=== PATIENT | male | born 1990 | race Caucasian/White ===

== ENCOUNTER 2018-08-19 20:30 | Inpatient (IN) | payer SELFPAY ==
[2018-08-19] MEDS: ALBUTEROL/IPRATROPIUM 3 ML AMPUL INH ×2 (20:38→20:49)
--- NOTE | 2018-08-19 20:38 | ED.ASTHMA ---
HPI - Asthma General Chief Complaint: Upper Respiratory Symptoms Stated Complaint: cant breath Time Seen by Provider: 08/19/18 20:38 Source: patient and family Mode of arrival: ambulatory Limitations: no limitations History of Present Illness HPI Narrative: 28 year old male, non smoker with history of asthma presents with family and chief complaint of worsening wheeze, fever, cough, headache, and body ache since last night. His normal bronchodilators are not providing much relief. He states he has never been so sick. He denies sick contacts. He denies recent travel. MD complaint: asthma attack, shortness of breath and wheezing Onset (ago): hour(s) Severity: severe Associated symptoms: dry cough and fever Asthma History: childhood onset Treatments Prior to Arrival: inhaled bronchodilator Related Data Current Asthma Therapy: inhaled bronchodilator Baseline Peak Flow (L/min): 250 Allergies Allergy/AdvReac Type Severity Reaction Status Date / Time No Known Drug Allergies Allergy Verified 08/20/18 01:23 Review of Systems Review of Systems All systems reviewed & are unremarkable except as noted in HPI and below Constitutional Reports chills, Reports fever(s), Reports headache(s), Denies lethargy and Denies weakness Eyes Denies change in vision, Denies eye discharge, Denies irritation and Denies loss of vision ENT Ears, Nose, Mouth, and Throat: Denies change in voice, Reports headache(s), Denies neck pain and Denies sore throat Cardiovascular Denies chest pain, Denies irregular heart rhythm, Denies lightheadedness, Denies palpitations, Reports dyspnea, Denies dyspnea on exertion and Denies orthopnea Respiratory Reports cough, Reports dyspnea, Denies dyspnea on exertion and Reports wheezing Gastrointestinal Gastrointestinal: Denies abdominal pain, Denies change in bowel habits, Denies diarrhea, Denies nausea and Denies vomiting Genitourinary Denies hematuria, Denies flank pain, Denies urinary incontinence and Denies urinary urgency Musculoskeletal Reports myalgias and Denies neck pain Integumentary/Breasts Denies pruritus, Denies erythema, Denies rash and Denies wounds Neurologic Denies confusion, Reports headache(s), Denies loss of vision and Denies weakness Psychiatric Denies anxiety, Denies confusion, Denies depression, Denies homicidal ideation and Denies suicidal ideation Endocrine Denies palpitations Hematologic/Lymphatic Denies easy bruising Allergic/Immunologic Reports wheezing Exam Narrative Exam Narrative: 28M obviously ill, noted respiratory distress with use of accessory muscles Initial Vital Signs Initial Vital Signs: Vital Signs Pulse Rate 135 H 08/19/18 20:44 Respiratory Rate 28 H 08/19/18 20:44 Blood Pressure 132/78 08/19/18 20:44 Pulse Oximetry 90 L 08/19/18 20:44 Const General: cooperative, well developed, acute distress and ill appearing Nutritional Appearance: well nourished Orientation: alert, awake, oriented x3 and not confused [facility] Head: normal to inspection Ears: hearing grossly normal bilaterally and external ears normal Nose: external nose normal and nares normal Face and sinus: normal facial exam Mouth: oral mucosae normal Teeth and gingiva: dentition normal Throat: posterior oropharynx normal Neck Neck: normal visual inspection Chest Chest: normal inspection of the chest Resp Effort & Inspection: audible wheezes, cough, labored, respiratory distress, tachypneic and uses accessory muscles Auscultation: no rales, no rhonchi and wheezes Cardio Rate: tachycardic Rhythm: regular rhythm GI Inspection: normal to inspection Palpation: soft Auscultation: normal bowel sounds Back/Spine/Pelvis Back: No CVA tenderness Cervical Spine: cervical ROM normal and No pain with cervical ROM Thoracic/Lumbar Spine: thoracic and lumbar spine normal to inspection Skin General: no rashes or lesions noted, No jaundice and No petechiae Extrem General: full ROM, no clubbing, cyanosis or edema, no pedal edema and no calf tenderness PFSH Social History household members: significant other Smoking Status: Never smoker alcohol intake: current Course Orders Ordered: ED Orders 08/19/18 22:15 Arterial Blood Gas Stat 08/20/18 01:10 Lactate 4HR (Lactic Acid Rflx) Stat 08/20/18 03:06 Consult to Respiratory Therapy Evaluate & Treat RT Respiratory Nebulizer Treat RT PROTOCOL Acetaminophen (Tylenol) 650 mg PO Q6HR PRN PRN Reason: As Needed for Fever/Mild Pain Last Admin: 08/20/18 01:08 Dose: 650 mg Albuterol (Ventolin) 2.5 mg INH [id number] PRN PRN Reason: Shortness Of Breath Or Wheezing Last Admin: 08/20/18 02:45 Dose: 2.5 mg Albuterol/Ipratropium (Duoneb) 3 ml INH [id number] CLARISA Last Admin: 08/20/18 06:02 Dose: 3 ml Guaifenesin/Codeine Phosphate (Guaifenesin/Codeine Liquid) 5 ml PO Q4H PRN PRN Reason: Cough Last Admin: 08/20/18 06:14 Dose: 5 ml Admin: 08/20/18 02:15 Dose: 5 ml Sodium Chloride (Normal Saline 0.9%) 1,000 mls @ 125 mls/hr IV CONT CLARISA Last Admin: 08/20/18 01:05 Dose: 125 mls/hr Ondansetron HCl (Zofran) 4 mg IV Q4HR PRN PRN Reason: Nausea And Vomiting Discontinued Medications Albuterol (Ventolin) 2.5 mg INH NOW ONE Stop: 08/19/18 20:49 Last Admin: 08/19/18 20:48 Dose: 2.5 mg Albuterol (Ventolin) 5 mg INH NOW ONE Stop: 08/19/18 21:00 Last Admin: 08/19/18 20:59 Dose: 5 mg Albuterol/Ipratropium (Duoneb) 3 ml INH NOW ONE Stop: 08/19/18 20:37 Last Admin: 08/19/18 20:38 Dose: 3 ml Albuterol/Ipratropium (Duoneb) 3 ml INH NOW ONE Stop: 08/19/18 20:43 Last Admin: 08/19/18 20:49 Dose: 3 ml Sodium Chloride (Normal Saline 0.9%) 1,000 mls @ 1,000 mls/hr IV BOLUS ONE Stop: 08/19/18 21:41 Last Infusion: 08/19/18 22:04 Dose: 0 mls/hr Admin: 08/19/18 21:07 Dose: 1,000 mls/hr Sodium Chloride (Normal Saline 0.9%) 1,000 mls @ 1,000 mls/hr IV BOLUS ONE Stop: 08/19/18 22:58 Last Infusion: 08/19/18 23:50 Dose: 0 mls/hr Admin: 08/19/18 22:04 Dose: 1,000 mls/hr Methylprednisolone (Solu-Medrol 125 Mg Vial) 125 mg IV NOW ONE Stop: 08/19/18 20:43 Last Admin: 08/19/18 21:07 Dose: 125 mg Oseltamivir Phosphate (Tamiflu) 75 mg PO NOW ONE Stop: 08/19/18 21:20 Last Admin: 08/19/18 22:03 Dose: 75 mg Consultations Consultation #1: Dr. Hernandez happy to accept patient in OBS status on his service Vital Signs - 8 hr 08/19/18 22:33 08/20/18 00:20 08/20/18 02:43 Temperature 99.8 F H 98.6 F Pulse Rate 135 H 128 H 90 Respiratory Rate 11 L 20 20 Blood Pressure 106/81 Blood Pressure [Left Arm] 115/70 Pulse Oximetry 96 94 96 08/20/18 06:04 08/20/18 06:06 Temperature 98.4 F Pulse Rate 93 H 122 H Respiratory Rate 22 22 Blood Pressure 155/87 H Blood Pressure [Left Arm] Pulse Oximetry 96 97 MDM - Asthma Medical Records Attestation: I reviewed the patient's medical records. Lab Data Attestation: I reviewed the patient's lab results. Result diagrams: 08/19/18 20:50 08/19/18 20:50 Lab Results 08/19/18 08/19/18 08/19/18 Range/Units 20:45 20:50 20:50 WBC 10.2 (4.5-11.0) X10^3/uL RBC 4.96 (4.5-5.9) X10^6/uL Hgb 16.0 (13.5-17.5) g/dL Hct 46.5 (41-53) % MCV 93.7 (80-100) fL MCH 32.2 (26-34) PG MCHC 34.4 (30-36) % RDW 13.1 (11.6-14.8) % Plt Count 169 (150-400) X10^3/uL Neut % (Auto) 89.7 H (50-75) % Lymph % (Auto) 3.0 L (25-40) % [place] % (Auto) 6.7 (3-14) % Eos % (Auto) 0.3 L (2-4) % Baso % (Auto) 0.3 (0-2) % Neut # (Auto) 9200 H (7756-5204) /uL ABG pH (7.35-7.45) ABG pCO2 (35-45) mmHg ABG pO2 (80-100) mmHg ABG HCO3 (22-26) mmol/L ABG Total CO2 (21-31) mmol/L ABG O2 Saturation (95-100) % ABG Base Excess (-2-2) mmol/L FiO2 Sodium 140 (137-145) mmol/L Potassium 3.9 (3.4-5.1) mmol/L Chloride 102 (98-107) mmol/L Carbon Dioxide 24 (22-32) mmol/L BUN 12 (9-20) mg/dL Creatinine 1.10 (0.66-1.25) mg/dL Estimated GFR > 60.0 (>60) mL/min BUN/Creatinine Ratio 10.9 (6-22) Glucose 125 H (70-100) mg/dL Lactate (0.7-2.1) mmol/L Calcium 9.3 (8.4-10.2) mg/dL Influenza A & B (PCR) Positive, type a A (Negative) 08/19/18 08/19/18 08/20/18 Range/Units 20:50 22:15 01:10 WBC (4.5-11.0) X10^3/uL RBC (4.5-5.9) X10^6/uL Hgb (13.5-17.5) g/dL Hct (41-53) % MCV (80-100) fL MCH (26-34) PG MCHC (30-36) % RDW (11.6-14.8) % Plt Count (150-400) X10^3/uL Neut % (Auto) (50-75) % Lymph % (Auto) (25-40) % [place] % (Auto) (3-14) % Eos % (Auto) (2-4) % Baso % (Auto) (0-2) % Neut # (Auto) (5073-1109) /uL ABG pH 7.46 H (7.35-7.45) ABG pCO2 28.0 L (35-45) mmHg ABG pO2 59 L (80-100) mmHg ABG HCO3 20 L (22-26) mmol/L ABG Total CO2 21 (21-31) mmol/L ABG O2 Saturation 92 L (95-100) % ABG Base Excess -4.0 L (-2-2) mmol/L FiO2 21 Sodium (137-145) mmol/L Potassium (3.4-5.1) mmol/L Chloride (98-107) mmol/L Carbon Dioxide (22-32) mmol/L BUN (9-20) mg/dL Creatinine (0.66-1.25) mg/dL Estimated GFR (>60) mL/min BUN/Creatinine Ratio (6-22) Glucose (70-100) mg/dL Lactate 2.4 H 2.5 H (0.7-2.1) mmol/L Calcium (8.4-10.2) mg/dL Influenza A & B (PCR) (Negative) Imaging Data Chest x-ray: Attestation: I personally reviewed and interpreted this imaging study as follows: My impression: NAP MDM Narrative Medical decision making narrative: 28M with hx of asthma presents with obvious respiratory distress and decreased peak flow. ABG notes SpO2 59 despite multiple BDs. Will require hospitalization for ongoing treatment and evaluation Discharge Plan Departure Patient Disposition: Admitted as Observation Clinical Impression: Acute respiratory failure with hypoxia, Influenza A, Asthma exacerbation Discharge Date/Time: 08/20/18 00:05 Interventions: ED Discharge Assessment Last Done: 08/20/18 00:04 Admit Date/Time: 08/19/18 23:28 Admit Provider: Bienvenido Hernandez
--- NOTE | 2018-08-19 20:43 | DI.RAD.S_ITS ---
PROCEDURE: XR CHEST 1V INDICATIONS: fall, trauma, preop TECHNIQUE: One view of the chest was acquired. COMPARISON: None. FINDINGS: Surgical changes and devices: None. Lungs and pleura: No pleural effusions or pneumothorax. Lungs are clear. Pulmonary vasculature is prominent. Mediastinum: Mediastinal contours appear normal. Heart size is normal. Bones and chest wall: No displaced rib fractures identified. IMPRESSION: No acute cardiopulmonary disease. Dictated by: Anmol Llanes M.D. on 08/19/2018 at 21:34 Approved by: Anmol Llanes M.D. on 08/19/2018 at 21:38
[2018-08-19 20:44] VITALS: BP 132/78; PULSE 135; RESP 28; O2SAT 90
[2018-08-19] MEDS: ALBUTEROL 2.5 MG/3 ML NEB (ADULT) INH (20:48)
[2018-08-19 20:49] VITALS: PULSE 125; RESP 22; O2SAT 94
[2018-08-19] MEDS: ALBUTEROL 2.5 MG/3 ML NEB (ADULT) 5 MG INH (20:59)
[2018-08-19 21:00] VITALS: PULSE 137; RESP 20
[2018-08-19 21:04] LABS: Add Manual Diff / Slide Review NO; Basophils Percent Auto 0.3 % (0-2); Eosinophils Percent Auto 0.3 % (2-4); Hematocrit 46.5 % (41-53); Mean Corpuscular HGB Conc 34.4 % (30-36); Mean Corpuscular Hemoglobin 32.2 PG (26-34); Mean Corpuscular Volume 93.7 fL (80-100); Monocytes Percent Auto 6.7 % (3-14); Neutrophils Absolute Auto 9200 /uL (1500-7000); Neutrophils Percent Auto 89.7 % (50-75); Platelet Count 169 X10^3/uL (150-400); Red Blood Cell Count 4.96 X10^6/uL (4.5-5.9); Red Cell Distribution Width 13.1 % (11.6-14.8); White Blood Cell Count 10.2 X10^3/uL (4.5-11.0)
[2018-08-19] MEDS: SODIUM CHLORIDE 0.9% 1,000 ML 1000 ML IV ×2 (21:07→22:04)
[2018-08-19] MEDS: methylPREDNISolone 125 MG/2 ML VIAL IV (21:07)
[2018-08-19 21:17] VITALS: TEMP 37.8
[2018-08-19 21:21] LABS: Lactate (Lactic Acid) 2.4 mmol/L (0.7-2.1)
[2018-08-19 21:22] LABS: BUN Creatinine Ratio 10.9 (6-22); Blood Urea Nitrogen 12 mg/dL (9-20); Calcium 9.3 mg/dL (8.4-10.2); Carbon Dioxide 24 mmol/L (22-32); Chloride 102 mmol/L (98-107); Estimated Glomerular Filt Rate > 60.0 mL/min (>60); Glucose 125 mg/dL (70-100); HEMOLYSIS < 15 (0-50); Potassium 3.9 mmol/L (3.4-5.1); Sodium 140 mmol/L (137-145)
[2018-08-19] MEDS: OSELTAMIVIR 75 MG CAPSULE PO (22:03)
[2018-08-19 22:18] LABS: pH ABG 7.46 (7.35-7.45)
[2018-08-19 22:19] LABS: Fractionated Inspired Oxygen 21; HCO3 ABG 20 mmol/L (22-26); Oxygen Saturation ABG 92 % (95-100); PO2 ABG 59 mmHg (80-100); TCO2 ABG 21 mmol/L (21-31)
[2018-08-19 22:33] VITALS: BP 115/70; PULSE 135; RESP 11; TEMP 37.7; O2SAT 96
[2018-08-20] VITALS (19 sets, daily range): BP systolic 106–155; BP diastolic 68–87; PULSE 78–128; RESP 16–22; TEMP 36.4–37; O2SAT 91–98; BMI 31.6
[2018-08-20 01:00] LABS: Reflexed Lactate in 2 Hours Y
[2018-08-20] MEDS: SODIUM CHLORIDE 0.9% 1,000 ML 125 ML IV ×3 (01:05→18:05)
[2018-08-20] MEDS: ACETAMINOPHEN 325 MG TABLET 650 MG PO ×2 (01:08→06:56)
[2018-08-20 01:43] LABS: Lactate 2HR (Lactic Acid Rflx) 2.5 mmol/L (0.7-2.1)
[2018-08-20] MEDS: CODEINE/GUAIFENESIN LIQUID 5ML UDC 5 ML PO ×5 (02:15→23:45)
[2018-08-20] MEDS: ALBUTEROL 2.5 MG/3 ML NEB (ADULT) INH (02:45)
[2018-08-20] MEDS: ALBUTEROL/IPRATROPIUM 3 ML AMPUL INH ×5 (06:02→23:21)
--- NOTE | 2018-08-20 06:43 | PC.NURSE ---
Patient has had headache all night. Tylenol given at 0108. Desires additional headache medication. Has taken 2 doses of guaifenisin with codeine for his cough. Respiratory status is declining. His lung sounds were diminished at midnight, expiratory whezzes around 022, and at 0500 his lung sounds are very coarse. AM hospitalist aware, and states he will see patient.
--- NOTE | 2018-08-20 07:22 | P.HP_ITS ---
History of Present Illness Date Patient Seen: 08/20/18 Time Patient Seen: 07:14 Chief complaint: cant breath Narrative: THIS IS A 28-YEAR-OLD MALE WITH A PAST MEDICAL HISTORY SIGNIFICANT FOR ASTHMA. HE ALSO REPORTED CHRONIC BACK PAIN DUE TO A PRIOR INJURY. 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 HE DENIES TOBACCO ABUSE OR ALCOHOL ABUSE. HE PRESENTED TO THE HOSPITAL WITH COMPLAINT OF DIFFICULTY BREATHING. HE ALSO REPORTED FEVER. T-MAX IS UNCLEAR. HE REPORTED COUGH WITH SOME MILD YELLOWISH PRODUCTION. SEVERE HEADACHE AND BACK PAIN. HE STATED THE SYMPTOMS STARTED A COUPLE DAYS AGO BUT WORSENING PRIOR TO OUR ARRIVAL TO THE HOSPITAL HE REPORTED SICK CONTACTS WITH [employer] OF HIS FIRMWARE MANAGER HAVING HAD THE FLU PRIOR. HE USES AN INHALER FOR HIS RESPIRATORY SYMPTOMS HE REPORTED THAT THE SHORTNESS OF BREATH IS WORSE WITH EXERTION. BETTER WITH REST. NO CHEST PAIN OR CHEST PALPITATION. NO DIAPHORESIS. NO ORTHOPNEA. NO RECENT WEIGHT LOSS OR WEIGHT GAIN. NO DIFFICULTY SWALLOWING. NO BLOOD PER RECTUM. NO BLOOD IN SPUTUM OR URINE. NO OTHER COMPLAINTS Patient History Medical History Asthma (Acute) Chronic back pain (Acute) Surgical History Previous back surgery (Acute) Family & Social History Family History: Reviewed 08/20/18 by Ulisses Dalton DO Social History: household members significant other Prior Living Arrangements Mobile home Safety & Behavioral: Feels Safe in Current Yes Environment Been Physically Hurt or No Threatened By a Person Suicidal Ideation Description None Suicide Plan Description No Plan Tobacco & Substance use: Smoking Status Never smoker alcohol intake current alcohol intake frequency 3 or more drinks per day Substance Use Type does not use Meds Allergies Allergy/AdvReac Type Severity Reaction Status Date / Time No Known Drug Allergies Allergy Verified 08/20/18 01:23 Review of Systems Review of Systems All systems reviewed & are unremarkable except as noted in HPI and below Exam Vital Signs (past 8 hours): - 08/20/18 00:20 08/20/18 02:43 08/20/18 06:04 Temperature 98.6 F Pulse Rate 128 H 90 93 H Respiratory Rate 20 20 22 Blood Pressure 106/81 Pulse Oximetry 94 96 96 08/20/18 06:06 Temperature 98.4 F Pulse Rate 122 H Respiratory Rate 22 Blood Pressure 155/87 H Pulse Oximetry 97 Oxygen Delivery Method Nasal Cannula Oxygen Flow Rate 4.5 Narrative Exam Narrative: NO ACUTE DISTRESS. PATIENT IS ALERT ORIENTED X3. APPEARS OLDER THAN STATED AGE VITAL SIGNS STABLE HEAD ATRAUMATIC NORMOCEPHALIC NECK : SUPPLE WITHOUT ADENOPATHY NO CAROTID BRUITS EYE: EOMI, PERRLA, NORMAL CONJUNCTIVA; NO JAUNDICE CHEST: REGULAR RATE. NO RUBS. PMI IS NON DISPLACED. NO MURMURS; NORMAL S1- S2 PULMONARY: DECREASED BS OVER THE BASES. BIBASILAR CRACKLES NOTED; NO INCREASED DULLNESS TO PERCUSSION; WHEEZING NOTED THROUGHOUT THE LUNG DODGE. NO RALES OR RHONCHI; NO TENDERNESS ON CHEST PALPATION ABDOMEN: SOFT. NONTENDER. NONDISTENDED. BOWEL SOUNDS ARE PRESENT IN ALL 4 QUADRANTS. NO MASS. EXTREMITIES: NO EDEMA.. NO CYANOSIS CLUBBING NOTED. NEURO: CRANIAL NERVES 2-12 GROSSLY INTACT. NO FOCAL NEUROLOGICAL DEFICIT NOTED. MSK: NORMAL RANGE OF MOTION FOR AGE. NO JOINT EFFUSION. SKIN: NORMAL FOR ETHNICITY; NO ECCHYMOSIS. NO LESION. GOOD TURGOR.; NO RASHES : NORMAL EXTERNAL GENITALIA. PSYCH : APPROPRIATE MOOD AND AFFECT. ALERT AWAKE ORIENTED X3 Objective Labs Result Diagrams: 08/19/18 20:50 08/19/18 20:50 Labs: Laboratory Results - last 24 hr 08/19/18 08/19/18 08/19/18 20:45 20:50 20:50 WBC 10.2 RBC 4.96 Hgb 16.0 Hct 46.5 MCV 93.7 MCH 32.2 MCHC 34.4 RDW 13.1 Plt Count 169 Neut % (Auto) 89.7 H Lymph % (Auto) 3.0 L [place] % (Auto) 6.7 Eos % (Auto) 0.3 L Baso % (Auto) 0.3 Neut # (Auto) 9200 H ABG pH ABG pCO2 ABG pO2 ABG HCO3 ABG Total CO2 ABG O2 Saturation ABG Base Excess FiO2 Sodium 140 Potassium 3.9 Chloride 102 Carbon Dioxide 24 BUN 12 Creatinine 1.10 Estimated GFR > 60.0 BUN/Creatinine Ratio 10.9 Glucose 125 H Lactate Calcium 9.3 Influenza A & B (PCR) Positive, type a A 12/08/19/18 08/20/18 20:50 22:15 01:10 WBC RBC Hgb Hct MCV MCH MCHC RDW Plt Count Neut % (Auto) Lymph % (Auto) [place] % (Auto) Eos % (Auto) Baso % (Auto) Neut # (Auto) ABG pH 7.46 H ABG pCO2 28.0 L ABG pO2 59 L ABG HCO3 20 L ABG Total CO2 21 ABG O2 Saturation 92 L ABG Base Excess -4.0 L FiO2 21 Sodium Potassium Chloride Carbon Dioxide BUN Creatinine Estimated GFR BUN/Creatinine Ratio Glucose Lactate 2.4 H 2.5 H Calcium Influenza A & B (PCR) Assessment & Plan Plan: Assessment/Plan Narrative: IMPRESSION AND PLAN ACUTE RESPIRATORY FAILURE. APPEAR HYPOXIC IN NATURE. THIS IS SECONDARY TO VIRAL PNEUMONITIS CAUSING ACUTE ASTHMA EXACERBATION. PATIENT WILL BE CONTINUED ON TAMIFLU BECAUSE OF THE FLU POSITIVE TESTING. HE WILL BE ALSO CONTINUED ON STEROIDS TWICE A DAY. RESPIRATORY THERAPY WAS CONSULTED AND BREATHING TREATMENT WAS ORDERED EVERY 4 WHILE AWAKE. WE WILL REPEAT A CHEST X-RAY THIS MORNING IF INDICATED. WILL CONSIDER ABG INDICATED TO MONITOR ACID-BASE BALANCE. OXYGEN THERAPY TO MAINTAIN PROPER OXYGEN SATURATION. INCENTIVE SPIROMETRY WILL BE ORDERED WHILE AWAKE TIMES 10. FLU PNEUMONITIS. PATIENT WILL BE ON TAMIFLU. MONITOR CLOSELY. ADDITIONAL TREATMENT ABOVE. ACUTE ASTHMA EXACERBATION. SECONDARY TO FLU PNEUMONITIS. TREATMENT ABOVE ELEVATED LACTATE. LIKELY SECONDARY TO ACUTE RESPIRATORY FAILURE. FOLLOW CLOSELY; NO ANTIBIOTICS INDICATED AT THIS POINT; NO SEPSIS SUSPECTED DURATION OF THE STAY SHOULD BE WITHIN 1-2 DAYS. TIME SPENT 45 MIN Quality VTE Deep Vein Thrombosis/Pulmonary Embolism Present on Admission: No
[2018-08-20] MEDS: methylPREDNISolone 125 MG/2 ML VIAL 80 MG IV ×2 (07:51→19:21)
[2018-08-20] MEDS: KETOROLAC 30 MG/ML VIAL IV (07:51)
[2018-08-20] MEDS: OSELTAMIVIR 75 MG CAPSULE PO ×2 (07:51→20:30)
[2018-08-20] MEDS: MAGNESIUM SULFATE 2 GM/50 ML PIGGYBACK IV (08:14)
--- NOTE | 2018-08-20 09:09 | CM.DANOTE ---
DCP: Case received, EMR reviewed and met with patient. Introduced self and role. DCP template completed with information currently available. Patient is a 28 year old male who admitted yesterday evening to the care of the hospitalist team. PCP: Dr. Keene. Payer: confirmed: Steff TAYLOR. Patient came to hospital via family vehicle due to symptoms of difficulty breathing. Patient has history of asthma. Patient is in isolation at this time, secondary to having diagnosis of Influenza A. Briefly spoke to grandfather, Poncho, about patient's baseline. He is not POA, so this rn case management was unable to give him information about patient, for he did not know that patient was in hospital. 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 He was requesting that his grandson call him. Met with patient briefly, stated that he would call his grandfather. Is independent, lives with significant other. Has the same mailing address as his grandfather, Poncho, for he is gone a lot on fishing trips for his work. P: DCP to continue to follow closely. Patient should be able to go home when he is medically stable. Josefa Fritz RN/Corporate Risk Analyst
[2018-08-20] MEDS: HYDROCODONE/ACET 5/325 TABLET 1 TAB PO ×4 (09:32→23:45)
--- NOTE | 2018-08-20 09:54 | PC.NURSE ---
Day shift Pt sitting up in bed was A&O able to communicate needs, SOB while at rest sats 96% 4.5l via cannula, was warm to touch and diaphoretic, c/o h/a 04/30 states that Tylenol does not work, HR 100-120's, received VVO from dr Zuniga for tramadol 30mg IV q 8H prn and place tele, tele was placed and ICU notified. Pt instructed to stand at bedside and use urinal since he is having sob while at rest. SBA with urinal. urine is clear yellow. Medicated with toradol for pain, IV fluids infusing. Denies any Nausea, also denies chest pain. Lung sounds are diminished bilateral throughout. pt eating breakfast at this time. 0940- pt continues to c/o h/a 04/30 medicated with vicodin. Pts appears to be breathing better not using as much assessory muscles to breath and able to have an ongoing conversation better.
--- NOTE | 2018-08-20 18:44 | PC.NURSE ---
1500- assumed care of pt form outgoing shift. pt awake and alert. significant other at bedside. pt on 2l oxygen, saturations 27%. Pt has been using call light when needing assistance but ambulates steady gait and is able to manipulate the IV pole. Pt given prns. lungs sound better. Pt HR tachy, educated pt about this. will continue to monitor pt for safety.
[2018-08-21] VITALS (7 sets, daily range): BP systolic 134–140; BP diastolic 71–85; PULSE 67–97; RESP 15–18; TEMP 36.7–36.8; O2SAT 93–98
[2018-08-21] MEDS: SODIUM CHLORIDE 0.9% 1,000 ML 125 ML IV ×2 (02:31→10:18)
[2018-08-21] MEDS: HYDROCODONE/ACET 5/325 TABLET 1 TAB PO ×2 (04:18→08:25)
[2018-08-21] MEDS: PANTOPRAZOLE 20 MG TABLET PO (04:19)
[2018-08-21] MEDS: CODEINE/GUAIFENESIN LIQUID 5ML UDC 5 ML PO ×3 (04:21→12:50)
[2018-08-21] MEDS: ALBUTEROL/IPRATROPIUM 3 ML AMPUL INH ×2 (06:05→10:25)
[2018-08-21] MEDS: ACETAMINOPHEN 325 MG TABLET 650 MG PO (08:22)
[2018-08-21] MEDS: OSELTAMIVIR 75 MG CAPSULE PO (08:22)
[2018-08-21] MEDS: methylPREDNISolone 125 MG/2 ML VIAL 80 MG IV (08:22)
--- NOTE | 2018-08-21 10:25 | P.DS_ITS ---
History of Present Illness Chief complaint: cant breath Narrative: THIS IS A 28-YEAR-OLD MALE WITH A PAST MEDICAL HISTORY SIGNIFICANT FOR ASTHMA. HE ALSO REPORTED CHRONIC BACK PAIN DUE TO A PRIOR INJURY. 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 HE DENIES TOBACCO ABUSE OR ALCOHOL ABUSE. HE PRESENTED TO THE HOSPITAL WITH COMPLAINT OF DIFFICULTY BREATHING. HE ALSO REPORTED FEVER. T-MAX IS UNCLEAR. HE REPORTED COUGH WITH SOME MILD YELLOWISH PRODUCTION. SEVERE HEADACHE AND BACK PAIN. 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 HE USES AN INHALER FOR HIS RESPIRATORY SYMPTOMS HE REPORTED THAT THE SHORTNESS OF BREATH IS WORSE WITH EXERTION. BETTER WITH REST. NO CHEST PAIN OR CHEST PALPITATION. NO DIAPHORESIS. NO ORTHOPNEA. NO RECENT WEIGHT LOSS OR WEIGHT GAIN. NO DIFFICULTY SWALLOWING. NO BLOOD PER RECTUM. NO BLOOD IN SPUTUM OR URINE. NO OTHER COMPLAINTS Discharge Providers Date of admission: 08/19/18 23:28 Primary care physician: Melissa Keene MD Consults: 08/20/18 03:06 Consult to Respiratory Therapy Evaluate & Treat Comment: Physician Instructions: Evaluate and treat Discharge provider: Ulisses Dalton DO Discharge Date: 08/21/18 Summary Discharge Diagnosis: ACUTE HYPOXIC RESPIRATORY FAILURE; RESOLVED ACUTE FLU PNEUMONITIS; DISCHARGED ON TAMIFLU ACUTE ASTHMA EXACERBATION; DISCHARGED ON STEROIDS TAPERED DOSE AND DUONEB ELEVATED LACTATE. RESOLVED Hospital Course: THIS IS A VERY PLEASANT 28-YEAR-OLD MALE WITH A PAST MEDICAL HISTORY SIGNIFICANT FOR OCCUPATIONAL INDUCED ASTHMA PATIENT PRESENTS TO THE HOSPITAL WITH SHORTNESS OF BREATH AND RESPIRATORY FAILURE DUE TO ASTHMA EXACERBATION. HIS EXTUBATION WAS DUE TO FLU PNEUMONITIS. PATIENT WAS STARTED ON TAMIFLU. PATIENT WAS ALSO STARTED ON STEROID AND DUONEB TREATMENTS. HE DID NOT SHOW ANY S/S OF BACTERIAL INFECTION. DOSE HE WAS NOT STARTED ON ANY ANTIBIOTICS AT THIS TIME HE APPEARS SIGNIFICANTLY IMPROVED. HE WILL BE DISCHARGED TO HOME REQUESTED. PATIENT WILL BE INSTRUCTED TO REFRAIN FROM LARGE CROWDS AND ALSO TO AVOID IMMUNOSUPPRESSED INDIVIDUALS ADDITIONAL MEASURE BE DEFERRED TO OUTPATIENT PROVIDER Status at Discharge Cognitive/behavioral status at discharge: STABLE TO Functional status at discharge: independent ambulation Overall status at discharge: patient is back to baseline Time Spent with Patient Greater than 30 minutes Exam Vital Signs (past 8 hours): - 08/21/18 04:10 08/21/18 04:35 08/21/18 06:09 Temperature 98.0 F Pulse Rate 68 Respiratory Rate 17 Blood Pressure 134/71 Pulse Oximetry 97 97 98 08/21/18 08:00 08/21/18 08:35 Temperature 98.2 F Pulse Rate 97 H Respiratory Rate 18 Blood Pressure 140/85 Pulse Oximetry 93 93 Oxygen Delivery Method Room Air Oxygen Flow Rate 0 Narrative Exam Narrative: NO ACUTE DISTRESS. PATIENT IS ALERT ORIENTED X3. APPEARS OLDER THAN STATED AGE VITAL SIGNS STABLE HEAD ATRAUMATIC NORMOCEPHALIC NECK : SUPPLE WITHOUT ADENOPATHY NO CAROTID BRUITS EYE: EOMI, PERRLA, NORMAL CONJUNCTIVA; NO JAUNDICE CHEST: REGULAR RATE. NO RUBS. PMI IS NON DISPLACED. NO MURMURS; NORMAL S1- S2 PULMONARY: DECREASED BS OVER THE BASES. BIBASILAR CRACKLES NOTED; NO INCREASED DULLNESS TO PERCUSSION; WHEEZING NOTED THROUGHOUT THE LUNG DODGE. NO RALES OR RHONCHI; NO TENDERNESS ON CHEST PALPATION ABDOMEN: SOFT. NONTENDER. NONDISTENDED. BOWEL SOUNDS ARE PRESENT IN ALL 4 QUADRANTS. NO MASS. EXTREMITIES: NO EDEMA.. NO CYANOSIS CLUBBING NOTED. NEURO: CRANIAL NERVES 2-12 GROSSLY INTACT. NO FOCAL NEUROLOGICAL DEFICIT NOTED. MSK: NORMAL RANGE OF MOTION FOR AGE. NO JOINT EFFUSION. SKIN: NORMAL FOR ETHNICITY; NO ECCHYMOSIS. NO LESION. GOOD TURGOR.; NO RASHES : NORMAL EXTERNAL GENITALIA. PSYCH : APPROPRIATE MOOD AND AFFECT. ALERT AWAKE ORIENTED X3 Objective Labs Result Diagrams: 08/19/18 20:50 08/19/18 20:50 Discharge Plan Discharge Plan Patient Disposition: Home Discharge comment: ACT ASTRID CARDIAC DIET F/U WITH PCP 3-10 DAYS NEEDED AVOID LARGE CROWDS AND IMMUNOCPMPROMISED INDIVIDUALS Discharge Med Rec/Prescriptions Prescriptions: New ipratropium-albuterol 0.5 mg-3 mg(2.5 mg base)/3 mL Solution For Nebulization 3 ml INH [id number] Qty: 90 RF: 0 albuterol sulfate 2.5 mg /3 mL (0.083 %) Solution For Nebulization 2.5 mg INH [id number] PRN (Reason: Shortness Of Breath Or Wheezing) Qty: 1 RF: 0 pantoprazole 20 mg Tablet,Delayed Release (Dr/Ec) 20 mg PO 0600 30 Days Qty: 30 RF: 0 oseltamivir [Tamiflu] 75 mg Capsule 75 mg PO BID 9 Days Qty: 8 RF: 0 codeine-guaifenesin 10-100 mg/5 mL Liquid 5 ml PO Q4H PRN (Reason: Cough) Qty: 120 RF: 0 prednisone 10 mg tablet 10 mg PO DIRECTED Qty: 30 RF: 0 Follow up/Referrals: Melissa Keene MD [Primary Care Provider] - Provider Discharge Instructions Diet: Low-fat and Low-cholesterol Skin/Wound/Dressing Care Report to your healthcare provider any signs of infection, such as:: chills, fever, night sweats, increased pain, unusual drainage and unusual redness Visit Report/Discharge Packet Instructions: DI for Asthma -- Adult, DI for Influenza -- Adult Visit Report Forms: Stroke Signs & Symptoms Discharge Data Primary Care Provider: Melissa Keene Attending Provider: Bienvenido Hernandez Admit Date/Time: 08/19/18 23:28 Quality VTE Deep Vein Thrombosis/Pulmonary Embolism Present on Admission: No
--- NOTE | 2018-08-21 13:18 | PC.NURSE ---
Discharge: IV dc'd intact. Tele dc'd. Reviewed d/c instructions and prescriptions thoroughly. Instructed, per RT recommendation, that he should be able to purchase a home neb set-up from local pharmacy for rather cheap without a prescription. Instructed that MD recommended follow up appt within 3-10 days of discharge. 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 Patient doubts he will follow up before he leaves. This typewriter ribbon winder advised patient to try as hard as possible to follow up before leaving for work. Advised to rest as much as possible, and to listen to his body. Advised strongly against going back to work (which will have him on a boat for about a month) unless he is feeling considerably better and has no concerns about being a distance away from immediate medical help should he need it. Patient verbalized understanding, stating it's not worth dying over, I can get a job at the [employer] in [facility] today no problem. Given all scripts, confirmed with patient that [facility] here in [facility] is open today until 5 pm. All personal belongings sent with patient at discharge (including inhaler and spacer from drawer). Wheeled out to private vehicle by this typewriter ribbon winder.
== END 2018-08-21 13:43 | disposition home or self-care (01) | DRG 193 ==
LOC: ED 22:21 → AC 08-20 08:11
PROVIDERS: Admitting Provider Internal Medicine; Emergency Provider Emergency Medicine; PCP Family Medicine; Visit Provider Internal Medicine
DX: J10.00 Influenza due to other identified influenza virus with unspecified type of pneumonia (principal); J96.01 Acute respiratory failure with hypoxia; J45.901 Unspecified asthma with (acute) exacerbation; I10 Essential (primary) hypertension; G89.29 Other chronic pain
CPT/HCPCS: 36415; 36591; 36600; 71045; 80048; 82805; 83605; 85025; 87040; 87400; 94150; 94640; 94760; 96361; 96374; 99283; 99285; 99291; J1885; J2930; J7613